=== PATIENT | female | born 1995 | race Caucasian/White ===

== ENCOUNTER 2017-12-15 17:45 | Emergency (ER) | payer OTHER ==
[2017-12-15] MEDS: morphine 2 MG INJ IV (20:47)
[2017-12-15] MEDS: ONDANSETRON 4 MG INJ IV (20:47)
[2017-12-15] MEDS: SOD CHLORIDE 0.9% 1,000 ML IV (20:48)
[2017-12-15 20:57] LABS: ADD MAN DIFF? NO
[2017-12-15 20:58] LABS: BASOPHILS % 0.3 % (0.0-2.0); EOSINOPHILS % 0.1 % (0.0-7.0); HEMOGLOBIN 12.7 g/dl (12.0-16.0); IMMATURE GRANS #M 0.04 10^3/ul; IMMATURE GRANS % (M) 0.3 %; LYMPHOCYTES # 1.3 10^3/ul (0.8-2.9); LYMPHOCYTES % 10.5 % (15.0-51.0); MEAN CORPUSCULAR HEMOGLOBIN 28.7 pg (29.0-33.0); MEAN CORPUSCULAR HGB CONC 33.4 g/dl (32.0-37.0); MEAN PLATELET VOLUME 11.5 fl (7.4-10.4); MONOCYTE # 0.7 10^3/ul (0.3-0.9); MONOCYTES % 5.8 % (0.0-11.0); NEUTROPHIL # 10.2 10^3/ul (1.6-7.5); PLATELET COUNT 197 10^3/UL (140-415); RED BLOOD COUNT 4.42 10^6/ul (4.20-5.40); RED CELL DISTRIBUTION WIDTH 14.4 % (11.5-14.5)
[2017-12-15 20:58] LABS: WHITE BLOOD COUNT 12.3 10^3/ul (4.8-10.8)
[2017-12-15 21:01] LABS: ADD UMIC NO; UR ASCORBIC ACID NEGATIVE (NEGATIVE); UR BILIRUBIN (Dip) NEGATIVE (NEGATIVE); UR BLOOD (Dip) NEGATIVE (NEGATIVE); UR CLARITY CLEAR (CLEAR); UR COLOR YELLOW (YELLOW); UR GLUCOSE (Dip) NEGATIVE (NEGATIVE); UR KETONES (Dip) 1+ mg/dL (NEGATIVE); UR LEUKOCYTE ESTERASE (Dip) NEGATIVE Leu/ul (NEGATIVE); UR NITRITE (Dip) NEGATIVE (NEGATIVE); UR SPECIFIC GRAVITY (Dip) 1.005 (1.003-1.030); UR TOTAL PROTEIN (Dip) NEGATIVE (NEGATIVE); UR UROBILINOGEN (Dip) NEGATIVE (NEGATIVE)
[2017-12-15 21:19] LABS: ALANINE AMINOTRANSFERASE 48 IU/L (13-69); ALBUMIN 4.4 g/dl (3.3-4.9); ALBUMIN/GLOBULIN RATIO 1.33; ALKALINE PHOSPHATASE 71 IU/L (42-121); ANION GAP 14 (8-16); ASPARTATE AMINO TRANSFERASE 80 IU/L (15-46); BILIRUBIN,INDIRECT 0.7 mg/dl (0-1.1); BILIRUBIN,TOTAL 0.7 mg/dl (0.2-1.3); BLOOD UREA NITROGEN 4 mg/dl (7-20); CALCIUM 9.6 mg/dl (8.4-10.2); CARBON DIOXIDE 24 mmol/L (21-31); CHLORIDE 105 mmol/L (97-110); CREATININE 0.62 mg/dl (0.44-1.00); GLUCOSE 100 mg/dl (70-220); LIPASE 437 U/L (23-300); POTASSIUM 3.3 mmol/L (3.5-5.1); SODIUM 140 mmol/L (135-144); TOTAL PROTEIN 7.7 g/dl (6.1-8.1)
== END 2017-12-15 21:50 | disposition home or self-care (01) ==
LOC: FTE 21:50
DX: K80.50 Calculus of bile duct without cholangitis or cholecystitis without obstruction (principal)
CPT/HCPCS: 36415; 76705; 80053; 81003; 81025; 83690; 85025; 96361; 96374; 96375; 99285-25

== ENCOUNTER 2018-03-18 05:12 | Day surgery (SDC) | payer OTHER ==
[2018-03-18] MEDS ORDERED: BUPIVACAINE 0.25% (MPF) 30 ML INJ (06:31)
[2018-03-18] MEDS ORDERED: CEFAZOLIN 2 GM/50 ML (PMX) 50 ML IVPB (06:41)
[2018-03-18] MEDS ORDERED: SOD CHLORIDE 0.9% 1,000 ML IV (06:41)
[2018-03-18] MEDS ORDERED: LIDOCAINE 2% (SDV) 5 ML INJ (07:39)
[2018-03-18] MEDS ORDERED: PROPOFOL 20 ML (07:39)
[2018-03-18] MEDS ORDERED: ROCURONIUM 50 MG INJ (07:39)
[2018-03-18] MEDS ORDERED: MIDAZOLAM 1 MG/ML 2 ML INJ (07:41)
[2018-03-18] MEDS ORDERED: FENTAnyl 50 MCG/ML VIAL (07:43)
[2018-03-18] MEDS ORDERED: CEFAZOLIN 1 GM INJ (07:48)
[2018-03-18] MEDS ORDERED: ONDANSETRON 4 MG INJ (07:53)
[2018-03-18] MEDS ORDERED: DEXAMETHASONE 4 MG/ML 1 ML INJ (07:53)
[2018-03-18] MEDS ORDERED: ROPIVACAINE 0.5 % 30 ML VIAL (07:54)
[2018-03-18] MEDS ORDERED: GLYCOPYRROLATE 0.4 MG INJ ×2 (08:29)
[2018-03-18] MEDS ORDERED: NEOSTIGMINE 3 MG/3 ML SYRINGE (08:29)
[2018-03-18] MEDS ORDERED: HYDROCODONE/APAP (5/325) TAB PO (08:30)
[2018-03-18] MEDS: HYDROmorphONE 1 MG/5 ML IV SYRINGE IV ×3 (09:20→09:31)
== END 2018-03-18 10:25 | disposition home or self-care (01) ==
LOC: SDS 05:12
DX: K80.10 Calculus of gallbladder with chronic cholecystitis without obstruction (principal)
CPT/HCPCS: 47562; 88304